=== PATIENT | male | born 1955 | race Caucasian/White ===

== ENCOUNTER 2019-02-17 21:07 | Inpatient (IN) | payer MEDICAID ==
[~2019-02-17] VITALS: Ht 170.2 cm; Wt 74.8 kg
[2019-02-17] MEDS ORDERED: DILTIAZEM HCL 25 MG IV ONE (21:47)
--- NOTE | 2019-02-17 21:50 | NUR ---
PT BIB EMT. DUE TO PALPITATIONS. HR 135. BLOOD PRESSURE 148/75.
[2019-02-17 21:53] LABS: BASOPHILS # (AUTO) 0.1 /CMM (0.0-0.2); BASOPHILS % (AUTO) 0.5 % (0.0-2.0); EOSINOPHILS % (AUTO) 0.9 % (0.0-6.0); HEMATOCRIT 42 % (39-51); HEMOGLOBIN 14.2 g/dL (13.5-17.5); LYMPHOCYTES # (AUTO) 1.7 /CMM (0.8-4.8); LYMPHOCYTES % (AUTO) 7.6 % (20.0-44.0); MEAN CORPUSCULAR HGB CONC 34 g/dl (31.0-36.0); MEAN CORPUSCULAR VOLUME 84 fL (80-96); MONOCYTES # (AUTO) 1.3 /CMM (0.1-1.30); MONOCYTES % (AUTO) 5.9 % (2.0-12.0); NEUTROPHILS # (AUTO) 18.7 /CMM (1.8-8.9); NEUTROPHILS % (AUTO) 85.1 % (43.0-81.0); PLATELET COUNT (AUTO) 307 /CMM (150-450); RED BLOOD CELL COUNT(AUTO) 4.97 MIL/uL (4.5-6.0)
[2019-02-17] MEDS ORDERED: DILTIAZEM HCL 50 MG IV IV ONE ×2 (22:00)
[2019-02-17 22:11] LABS: CALCIUM, SERUM 8.8 mg/dL (8.5-10.1); CREATININE 0.7 mg/dL (0.6-1.3)
[2019-02-17 22:23] LABS: ALBUMIN 2.5 g/dL (3.4-5.0); BILIRUBIN,DIRECT 0.2 mg/dL (0.0-0.2); BILIRUBIN,TOTAL 0.6 mg/dL (0.2-1.0); TOTAL PROTEIN, SERUM 7.1 g/dL (6.4-8.2)
[2019-02-17] MEDS ORDERED: ATOR10TA GT (23:34)
[2019-02-17] MEDS ORDERED: LISI-607 GT (23:34)
[2019-02-17] MEDS ORDERED: HYDR-4384 PO (23:34)
[2019-02-17] MEDS ORDERED: RIVA10TA GT (23:34)
[2019-02-17] MEDS ORDERED: TICA90TA GT (23:34)
[2019-02-17] MEDS ORDERED: AMIO200T4 GT (23:34)
[2019-02-17] MEDS ORDERED: LEVO500T2 GT (23:34)
[2019-02-17] MEDS ORDERED: POTA20TA29 GT (23:34)
[2019-02-17] MEDS ORDERED: NUTR250L50 GT (23:34)
[2019-02-17 23:35] LABS: APPEARANCE,URINE Clear (CLEAR); BILIRUBIN,URINE SMALL (NEGATIVE); BLOOD, URINE Negative Ery/uL (NEGATIVE); COLOR,URINE Yellow (YELLOW); KETONES,URINE 15 (NEGATIVE); LEUKOCYTE ESTERASE ,URINE Negative (NEGATIVE); NITRITE, URINE Negative (NEGATIVE); PH,URINE 8.5 (5.0-8.0); PROTEIN,URINE 30 mg/dl (NEGATIVE); UGLUCOSE Negative (NEGATIVE)
[2019-02-17 23:55] LABS: BACTERIA,URINE None seen /HPF (None Seen); RBC,URINE 0-2 /HPF (0-2); SQUAMOUS EPITHELIAL CELL,UR Few /HPF (None Seen); WBC,URINE 0-2 /HPF (0-3)
--- NOTE | 2019-02-17 23:57 | NUR ---
AYESHA SPEAKING WITH FREDDY FOR ADMISSION ORDERS
[2019-02-18 01:30] VITALS: BP 144/76
--- NOTE | 2019-02-18 01:30 | NUR ---
RECEIVED PATIENT FROM ED VIA GURNEY IN STABLE CONDITION. PATIENT AWAKE, A/O X4 AND ABLE TO VERBALIZE AND/OR WRITE TO COMMUNICATE NEEDS. SHILEY 6 TRACH INTACT AND PATENT. PERIPHERAL LINE IN LAC #20 GAUGE INTACT AND PATENT. GTF JEVITY 1.2 AT 80ML/HR INITIATED AND TOLERATED WELL. NO C/O PAIN OR DISCOMFORT. BED IN LOW LOCK SETTING. ALL BELONGINGS KEPT NEAR BEDSIDE. WILL CONTINUE TO MONITOR.
[2019-02-18] MEDS ORDERED: ACETAMINOPHEN 650 MG/20.3 ML UDC GT PRN (02:00)
[2019-02-18] MEDS ORDERED: ALBU2.5V11 MC (02:33)
[2019-02-18] MEDS ORDERED: DOCU-141 PO (02:33)
[2019-02-18] MEDS ORDERED: LEVOFLOXACIN 500 MG /D5W 100ML 500 MG in PREMIX 1 EA IV SCH (03:00)
[2019-02-18] MEDS ORDERED: LEVOFLOXACIN 500 MG /D5W 100ML 100 ML IV ONE (03:32)
[2019-02-18 04:22] VITALS: BP 114/67
[2019-02-18] MEDS: FUROSEMIDE 40 MG/4 ML VIAL IV SCH ×3 (06:10→16:09)
--- NOTE | 2019-02-18 06:50 | NUR ---
SHORER NOTES PATIENT AWAKE IN BED WITH NO DISTRESS NOTED. CALL LIGHT WITHIN REACH. ALL DUE MEDS GIVEN ORDERED WITH NO ASE NOTED. NO C/O PAIN OR DISCOMFORT. PERIPHERAL LINE INTACT AND PATENT. GTF RUNNING AT TOLERATING WELL. PATIENT COMPLIANT WITH ALL NURSING CARE. BED IN LOW LOCK SETTING. ALL BELONGINGS KEPT NEAR BEDSIDE. WILL ENDORSE TO ONCOMING SHIFT.
[2019-02-18 07:35] LABS: THYROID STIMULATING HORMONE 1.946 uIU/mL (0.358-3.74)
[2019-02-18 07:36] LABS: CREATININE 0.8 mg/dL (0.6-1.3)
--- NOTE | 2019-02-18 07:46 | NUR ---
DISABILITY EXAMINER OPENING NOTES Received patient on trach mask, 5 L o2, no sob noted. Trach in place and does not seem to be dislodged. Patient denies pain at this time, feeding turned off at this time and to be resumed at 1200. Bed at the lowest setting, call light within reach.
[2019-02-18 07:47] LABS: BASOPHILS % (AUTO) 0.3 % (0.0-2.0); HEMATOCRIT 38 % (39-51); HEMOGLOBIN 12.8 g/dL (13.5-17.5); LYMPHOCYTES # (AUTO) 1.3 /CMM (0.8-4.8); LYMPHOCYTES % (AUTO) 8.8 % (20.0-44.0); MEAN CORPUSCULAR HGB CONC 34 g/dl (31.0-36.0); MEAN CORPUSCULAR VOLUME 85 fL (80-96); MONOCYTES # (AUTO) 0.9 /CMM (0.1-1.30); MONOCYTES % (AUTO) 6.2 % (2.0-12.0); NEUTROPHILS # (AUTO) 12.2 /CMM (1.8-8.9); NEUTROPHILS % (AUTO) 82.7 % (43.0-81.0); PLATELET COUNT (AUTO) 277 /CMM (150-450); RED BLOOD CELL COUNT(AUTO) 4.46 MIL/uL (4.5-6.0); WHITE BLOOD COUNT (AUTO) 14.8 K/uL (4.3-11.0)
[2019-02-18 08:00] VITALS: BP 117/69
[2019-02-18] MEDS ORDERED: JEVITY 1.2 CAL 1,000 ML BOTTLE GT PRN (08:00)
[2019-02-18] MEDS ORDERED: RIVAROXABAN 10 MG TABLET GT SCH (09:00)
[2019-02-18] MEDS ORDERED: METOPROLOL TARTRATE 25 MG TABLET GT SCH (09:00)
[2019-02-18] MEDS ORDERED: LISINOPRIL (5MG) 5 MG TABLET GT SCH (09:00)
[2019-02-18] MEDS ORDERED: LEVOFLOXACIN (500MG) 500 MG TABLET GT SCH (09:00)
[2019-02-18] MEDS ORDERED: DOCUSATE SODIUM LIQ 100 MG/10 ML UDC GT SCH (09:00)
[2019-02-18] MEDS: AMIODARONE HCL 200 MG TABLET GT SCH ×2 (09:51→16:09)
[2019-02-18 11:39] VITALS: BP 108/60
[2019-02-18] MEDS: TICAGRELOR 90 MG TABLET PO SCH ×2 (12:56→16:09)
[2019-02-18 16:00] VITALS: BP 134/97
[2019-02-18 16:09] VITALS: BP 134/97
--- NOTE | 2019-02-18 17:37 | NUR ---
RN MS DISCHARGE NOTES Patient discharged on 5L o2 trach mask, no sob noted. Patient suctioned and has clear airway. Secretions minimal, thin and easy to suction. No bleeding noted. Patient's belonging list is signed and patient has all their belongings. Patient signed all the discharge forms and has understanding of the discharge instructions. Patient has all the forms with him. Photo taken of and is now in the chart.
[2019-02-18] MEDS ORDERED: ATORVASTATIN 10 MG TABLET GT SCH (22:00)
== END 2019-02-18 17:30 | DRG 139 ==
LOC: ER 21:11 → TELE 02-18 00:52
PROVIDERS: ADMIT Internal Medicine; ATTEND Internal Medicine
DX: J15.9 Unspecified bacterial pneumonia (principal); Z93.0 Tracheostomy status; I48.0 Paroxysmal atrial fibrillation; R13.10 Dysphagia, unspecified; Z93.1 Gastrostomy status; I48.92 Unspecified atrial flutter; E78.5 Hyperlipidemia, unspecified; I10 Essential (primary) hypertension; I25.10 Atherosclerotic heart disease of native coronary artery without angina pectoris; I25.2 Old myocardial infarction; Z87.891 Personal history of nicotine dependence; Z95.5 Presence of coronary angioplasty implant and graft; D72.829 Elevated white blood cell count, unspecified; Z85.21 Personal history of malignant neoplasm of larynx
CPT/HCPCS: 36415; 71045-TC; 80048-TC; 80076-TC; 81000-TC; 83880; 84443-TC; 84484-TC; 85025-TC; 87081-TC; 93307-TC; A4216; G0378; J1940; J1956; J3490

== ENCOUNTER 2019-02-28 18:52 | Emergency (ER) | payer MEDICAID ==
[~2019-02-28] VITALS: Ht 172.7 cm; Wt 76.2 kg
[~2019-02-28 18:52] MED LIST: ALBU2.5V11 MC; AMIO200T4 GT; ATOR10TA GT; DOCU-141 PO; HYDR-4384 PO; LEVO500T2 GT; LISI-607 GT; NUTR250L50 GT; POTA20TA29 GT; RIVA10TA GT; TICA90TA GT
--- NOTE | 2019-02-28 18:55 | NUR ---
PT KLEVER GEE 39 From [facility] "GTube out" PT IS ALERT AND ORIENTED BUT NON VERBAL, NOT IN RESPIRATORY DISTRESS, V/S STABLE, KEPT RESTED AND COMFORTABLE, WILL CONTINUE TO MONITOR.
--- NOTE | 2019-02-28 19:00 | NUR ---
SEEN AND EXAMINED BY DR. OLIVARES, UNABLE TO REPLACE G-TUBE.
--- NOTE | 2019-02-28 19:08 | NUR ---
ER PHLEB AT BEDSIDE FOR BLOOD DRAW.
[2019-02-28 19:16] LABS: BASOPHILS % (AUTO) 0.3 % (0.0-2.0); EOSINOPHILS % (AUTO) 1.8 % (0.0-6.0); HEMATOCRIT 36 % (39-51); LYMPHOCYTES # (AUTO) 2.7 /CMM (0.8-4.8); LYMPHOCYTES % (AUTO) 21.6 % (20.0-44.0); MEAN CORPUSCULAR HGB CONC 34 g/dl (31.0-36.0); MEAN CORPUSCULAR VOLUME 85 fL (80-96); MONOCYTES # (AUTO) 1.2 /CMM (0.1-1.30); MONOCYTES % (AUTO) 9.8 % (2.0-12.0); NEUTROPHILS # (AUTO) 8.2 /CMM (1.8-8.9); NEUTROPHILS % (AUTO) 66.5 % (43.0-81.0); PLATELET COUNT (AUTO) 296 /CMM (150-450); RED BLOOD CELL COUNT(AUTO) 4.22 MIL/uL (4.5-6.0); WHITE BLOOD COUNT (AUTO) 12.4 K/uL (4.3-11.0)
--- NOTE | 2019-02-28 19:19 | NUR ---
REPORT GIVEN TO NEHA LIMA FOR ILIANA.
--- NOTE | 2019-02-28 19:27 | NUR ---
PT IN BED W/ FAMILY AT THE BED SIDE, A, OX4. RESTINGCOMFORTABLY. NO DISTRESS, DRESSINGON GT SITE INTACT. NO BLEEDING . TRACH IN PLACE W/ NO INNERCANULA. WILL CONT TO MONITOR ,
[2019-02-28 19:29] VITALS: BP 103/44
[2019-02-28 19:29] LABS: ALBUMIN 2.7 g/dL (3.4-5.0); BILIRUBIN,DIRECT 0.1 mg/dL (0.0-0.2); BILIRUBIN,TOTAL 0.4 mg/dL (0.2-1.0); CALCIUM, SERUM 8.7 mg/dL (8.5-10.1); CREATININE 0.8 mg/dL (0.6-1.3); POTASSIUM 4.6 mmol/L (3.5-5.1)
--- NOTE | 2019-02-28 19:37 | NUR ---
Call from [facility] case finishing machine adjuster. [phone]. States working on transfer to [facility]
--- NOTE | 2019-02-28 19:59 | NUR ---
received a call from family preservation caseworker informing that pt has to be transferred to the [facility] due to insurance purposes. pt / family aware and agree. consent signed by the pt. made aware. will proceed with the transportation while continue to monitoring.
--- NOTE | 2019-02-28 20:15 | NUR ---
RT IS AT THE BEDSIDE HUMIDIFIYING PT'S O2. PT DOES NOT HAVE AN INNER CANULA IN HIS TRACH. RT IS AWARE. NOT ABLE TO INSERT A NEW INNER CANULA WE DO NOT HAVE THAT TYPE - CUFFLESS TRACH.
--- NOTE | 2019-02-28 21:15 | NUR ---
STILL WAITING FOR A BED PER TAMIR
--- NOTE | 2019-02-28 21:20 | NUR ---
RESTING IN BED COMFORTABLLY. AWAKE AND ALERT. AWAITING FOR TRANSPO. WILL CONT TO MONITOR ,
--- NOTE | 2019-02-28 22:08 | NUR ---
Pt accepted to [facility] by Dr Jung. [facility]. # for report [phone]. ETA for ambulance 45-60 min,.
--- NOTE | 2019-02-28 22:33 | NUR ---
CALLING REPORT TO [facility] LORENZANA AND SPOKE TO NEHA MARTINEZ
--- NOTE | 2019-02-28 22:35 | NUR ---
PLACED ON HOLD AND THEN SPOKE TO NEHA BOCANEGRA WHO STATED THAT THE PT IS NOT GOING TO THAT FLOOR/ROOM. NEHA BOCANEGRA TO CALL NURSING COMPUTER SCIENCES PROFESSOR TO GET THE ROOM NUMBER. PT IS GOING TO [facility].
--- NOTE | 2019-02-28 22:37 | NUR ---
GIVING REPORT TO [address] [place] [address], [id number] AT [facility]. NURSES STATION IS [id number]. REPORT GIVEN TO ELIER.
--- NOTE | 2019-02-28 22:53 | NUR ---
PT LEFT VIA AMBUALANCE TO [facility]LOR
== END 2019-02-28 22:29 ==
LOC: ER 18:54
DX: K94.23 Gastrostomy malfunction (principal); I10 Essential (primary) hypertension; Z85.818 Personal history of malignant neoplasm of other sites of lip, oral cavity, and pharynx; Z95.818 Presence of other cardiac implants and grafts; Z79.899 Other long term (current) drug therapy
CPT/HCPCS: 36415; 80048-TC; 80076-TC; 85025-TC; 85730-TC